=== PATIENT | female | born 1955 | race Caucasian/White ===

== ENCOUNTER 2021-05-02 23:03 | Inpatient (IN) | payer OTHER ==
[2021-05-03] MEDS ORDERED: Morphine 4 MG/ML VIAL ONE ×2 (00:08→02:11)
[2021-05-03] MEDS ORDERED: Ketorolac Tromethamine 30 MG/ML VIAL ONE (00:09)
[2021-05-03] MEDS ORDERED: Ondansetron PF 4 MG/2 ML Vial ONE (00:09)
[2021-05-03 00:19] LABS: #Basophils 0.1 10x3/uL (0.0-0.2); #Neutrophils 15.3 10x3/uL (1.5-8.4); %Basophils 0.3 % (0.0-2.0); %Eosinophils 0.1 % (0.0-6.0); %Lymphocytes 3.7 % (18.0-47.0); %Monocytes 11.2 % (0.0-10.0); Hemoglobin 10.7 g/dL (12.0-15.5); Mean Corpuscular HGB CONC 33.1 g/dL (32.0-36.0); Mean Corpuscular Hemoglobin 28.1 pg (27.0-33.0); Mean Corpuscular Volume 84.8 fl (81.6-98.3); Mean Platelet Volume 10.5 fl (7.4-10.4); Platelet Count 292 10x3/uL (150-450); RBC Distribution Width 12.7 % (11.5-14.5); Red Blood Cell (RBC) Count 3.81 10x6/uL (3.90-5.03); White Blood Cell (WBC) Count 18.2 10x3/uL (3.5-10.5)
[2021-05-03 00:34] LABS: ALT (SGPT) 9 U/L (8-55); AST (SGOT) 15 U/L (5-34); Alkaline Phosphatase 110 U/L (40-110); Anion Gap 16 mmol/L (10-20); BUN (Urea Nitrogen) 9 mg/dL (9.8-20.1); Bilirubin, Total 0.9 mg/dL (0.2-1.2); Calc. Creatinine Clearance 0 mL/min (70-130); Calcium 9.4 mg/dL (7.8-10.44); Carbon Dioxide 20 mmol/L (23-31); Chloride 96 mmol/L (98-107); Glucose 133 mg/dL (80-115); Lipase 35 U/L (8-78); Potassium 3.5 mmol/L (3.5-5.1); Sodium 128 mmol/L (136-145)
[2021-05-03] MEDS ORDERED: cefTRIAXone\\ROCEPHIN 1 GM VIAL ONE (00:37)
[2021-05-03 00:39] LABS: Bilirubin Neg (Negative); Blood, Urine 150 (Negative); Clarity Cloudy (Clear); Glucose, Urine (Dipstick) Normal (Negative); Ketone, Urine 15 mg/dL (Negative); Leukocyte 500 (Negative); Nitrite Negative (Negative); Protein, Urine (Dipstick) 100 mg/dl (Neg-Trace); Urobilinogen Normal mg/dL (Less than 2)
[2021-05-03 00:55] LABS: WBC/HPF Greater than 50 HPF (0-3)
[2021-05-03 00:56] LABS: Bacteria/HPF 2+ HPF (None Seen); Squamous Epithelial 0-3 HPF (0-3)
[2021-05-03] MEDS ORDERED: Calcium Carbonate 500 MG ChewTAB PO PRN (02:36)
[2021-05-03] MEDS ORDERED: Zolpidem Tartrate 5 MG TAB PO PRN (02:36)
[2021-05-03] MEDS ORDERED: Famotidine/PF 20 mg/2ml Vial SLOW IVP SCH (02:45)
[2021-05-03 04:03] VITALS: BMI 23.7
[2021-05-03] MEDS: Sodium Chloride 0.9% 1,000 ML IV SCH ×2 (04:29→15:39)
[2021-05-03] MEDS: Morphine 4 MG/ML VIAL SLOW IVP PRN ×4 (04:30→20:11)
[2021-05-03] MEDS: HYDROcodone/Acetaminophen 5/325 mg Tablet PO PRN ×3 (05:10→21:15)
[2021-05-03] MEDS ORDERED: FLU VACC QS2021-22(6MOS UP)/PF 60 MCG/0.5 ML SYRINGE IM ONE (05:15)
[2021-05-03 06:00] LABS: Anion Gap 12 mmol/L (10-20); BUN (Urea Nitrogen) 7 mg/dL (9.8-20.1); Calc. Creatinine Clearance 74 mL/min (70-130); Calcium 8.5 mg/dL (7.8-10.44); Carbon Dioxide 22 mmol/L (23-31); Chloride 104 mmol/L (98-107); Glucose 122 mg/dL (80-115); Potassium 3.4 mmol/L (3.5-5.1); Sodium 135 mmol/L (136-145)
[2021-05-03] MEDS ORDERED: Ketorolac Tromethamine 30 MG/ML VIAL IVP SCH (06:00)
[2021-05-03 07:12] LABS: #Monocytes 1.6 10x3/uL (0.0-1.1); #Neutrophils 13.9 10x3/uL (1.5-8.4); %Basophils 0.2 % (0.0-2.0); %Eosinophils 0.1 % (0.0-6.0); %Lymphocytes 5.7 % (18.0-47.0); %Monocytes 9.7 % (0.0-10.0); %Neutrophils 83.8 % (40.0-75.0); Hemoglobin 9.4 g/dL (12.0-15.5); Mean Corpuscular HGB CONC 32.8 g/dL (32.0-36.0); Mean Corpuscular Hemoglobin 28.6 pg (27.0-33.0); Mean Corpuscular Volume 87.2 fl (81.6-98.3); Mean Platelet Volume 11.2 fl (7.4-10.4); Platelet Count 265 10x3/uL (150-450); Red Blood Cell (RBC) Count 3.29 10x6/uL (3.90-5.03); White Blood Cell (WBC) Count 16.6 10x3/uL (3.5-10.5)
[2021-05-03] MEDS: cefTRIAXone\\ROCEPHIN 1 GM in Sodium Chloride 0.9% 100 ML IVPB SCH (08:40)
[2021-05-03] MEDS: Enoxaparin Sodium 40 MG/0.4 ML SYRINGE SC SCH (08:40)
[2021-05-03] MEDS: Amlodipine 5 MG TAB PO SCH (08:41)
[2021-05-03] MEDS: Pantoprazole 40 MG GRANULES PACKET PO SCH ×2 (08:41→09:02)
[2021-05-03] MEDS: Ondansetron PF 4 MG/2 ML Vial IVP PRN ×2 (08:49→14:28)
[2021-05-03] MEDS: Acetaminophen 325 MG TAB PO PRN (14:28)
[2021-05-04] MEDS: HYDROcodone/Acetaminophen 5/325 mg Tablet PO PRN ×3 (00:44→21:50)
[2021-05-04] MEDS: Sodium Chloride 0.9% 1,000 ML IV SCH (00:44)
[2021-05-04] MEDS: Acetaminophen 325 MG TAB PO PRN ×3 (04:27→19:32)
[2021-05-04] MEDS: Senokot S 8.6-50 MG TAB PO PRN ×2 (09:06→21:50)
[2021-05-04] MEDS: Amlodipine 5 MG TAB PO SCH (09:07)
[2021-05-04] MEDS: Enoxaparin Sodium 40 MG/0.4 ML SYRINGE SC SCH (09:11)
[2021-05-04] MEDS: cefTRIAXone\\ROCEPHIN 1 GM in Sodium Chloride 0.9% 100 ML IVPB SCH (09:11)
[2021-05-04] MEDS: Morphine 4 MG/ML VIAL SLOW IVP PRN ×2 (09:12→19:31)
[2021-05-04] MEDS ORDERED: Potassium Chloride 20 MEQ TAB PO SCH (13:30)
[2021-05-04] MEDS ORDERED: Electrolyte Replacement Protocol 1 EACH FS SCH (13:30)
[2021-05-04] MEDS: Lactated Ringer's 1,000 ML IV SCH (14:02)
[2021-05-04] MEDS: Ondansetron PF 4 MG/2 ML Vial IVP PRN (19:32)
[2021-05-05] MEDS: Ondansetron PF 4 MG/2 ML Vial IVP PRN ×2 (03:38→13:38)
[2021-05-05] MEDS: Morphine 4 MG/ML VIAL SLOW IVP PRN ×2 (03:40→08:08)
[2021-05-05] MEDS: HYDROcodone/Acetaminophen 5/325 mg Tablet PO PRN ×3 (03:43→12:15)
[2021-05-05 05:44] LABS: Mean Corpuscular Hemoglobin 28.1 pg (27.0-33.0); Mean Corpuscular Volume 85.3 fl (81.6-98.3); Mean Platelet Volume 10.9 fl (7.4-10.4); Platelet Count 264 10x3/uL (150-450)
[2021-05-05 05:59] LABS: Anion Gap 11 mmol/L (10-20); BUN (Urea Nitrogen) 11 mg/dL (9.8-20.1); Calc. Creatinine Clearance 84 mL/min (70-130); Calcium 8.8 mg/dL (7.8-10.44); Carbon Dioxide 23 mmol/L (23-31); Chloride 102 mmol/L (98-107); Glucose 92 mg/dL (80-115); Magnesium 1.7 mg/dL (1.6-2.6); Phosphorus 2.4 mg/dL (2.3-4.7); Potassium 3.9 mmol/L (3.5-5.1); Sodium 132 mmol/L (136-145)
[2021-05-05 07:19] LABS: MDiff Complete? YES
[2021-05-05 07:21] LABS: Band 1 % (5-11); Eosinophils 2 % (0-10); Lymphocytes 18 % (21-51); Monocytes 20 % (0-10); Neutrophil 57 % (42-75); Reactive Lymphocytes 2 % (0-10)
[2021-05-05 07:23] LABS: Platelet Morphology Comment Appears Adequate; RBC Morphology Normal
[2021-05-05] MEDS: Acetaminophen 325 MG TAB PO PRN ×2 (08:10→22:00)
[2021-05-05] MEDS: Enoxaparin Sodium 40 MG/0.4 ML SYRINGE SC SCH (08:17)
[2021-05-05] MEDS: cefTRIAXone\\ROCEPHIN 1 GM in Sodium Chloride 0.9% 100 ML IVPB SCH (08:17)
[2021-05-05] MEDS ORDERED: Magnesium 2 GM/50 ML 2 GM in Premix Bag 1 BAG IVPB SCH (08:30)
[2021-05-05] MEDS: Lactated Ringer's 1,000 ML IV SCH ×2 (08:46→10:35)
[2021-05-05] MEDS: Amlodipine 5 MG TAB PO SCH (10:33)
[2021-05-05] MEDS ORDERED: Ketorolac Tromethamine 15 MG/ML VIAL IVP PRN (12:22)
[2021-05-05] MEDS ORDERED: Morphine 4 MG/ML VIAL SLOW IVP PRN (12:23)
[2021-05-05] MEDS ORDERED: Sulfameth/Trimethoprim DS 800-160mg TAB PO SCH (13:00)
[2021-05-05] MEDS: Ketorolac Tromethamine 30 MG/ML VIAL IVP PRN (13:38)
[2021-05-05] MEDS: Sulfameth/Trimethoprim DS 800-160mg TAB PO SCH (20:35)
[2021-05-06 05:43] LABS: ALT (SGPT) 25 U/L (8-55); AST (SGOT) 19 U/L (5-34); Albumin 3.1 g/dL (3.4-4.8); Alkaline Phosphatase 145 U/L (40-110); Anion Gap 14 mmol/L (10-20); BUN (Urea Nitrogen) 13 mg/dL (9.8-20.1); Bilirubin, Total 0.2 mg/dL (0.2-1.2); Calc. Creatinine Clearance 75 mL/min (70-130); Calcium 8.9 mg/dL (7.8-10.44); Carbon Dioxide 22 mmol/L (23-31); Chloride 103 mmol/L (98-107); Globulin 3.5 g/dL (2.4-3.5); Glucose 96 mg/dL (80-115); Magnesium 2.1 mg/dL (1.6-2.6); Potassium 4.4 mmol/L (3.5-5.1); Protein, Total 6.6 g/dL (5.8-8.1); Sodium 135 mmol/L (136-145)
[2021-05-06] MEDS: Lactated Ringer's 1,000 ML IV SCH (06:51)
[2021-05-06 07:33] LABS: #Eosinphils 0.3 10x3/uL (0.0-0.5); #Monocytes 1.3 10x3/uL (0.0-1.1); #Neutrophils 6.4 10x3/uL (1.5-8.4); %Basophils 0.4 % (0.0-2.0); %Eosinophils 2.5 % (0.0-6.0); %Lymphocytes 18.1 % (18.0-47.0); %Monocytes 12.8 % (0.0-10.0); %Neutrophils 65.3 % (40.0-75.0); Hemoglobin 9.2 g/dL (12.0-15.5); Mean Corpuscular HGB CONC 32.9 g/dL (32.0-36.0); Mean Corpuscular Hemoglobin 27.7 pg (27.0-33.0); Mean Corpuscular Volume 84.3 fl (81.6-98.3); Mean Platelet Volume 10.5 fl (7.4-10.4); Platelet Count 299 10x3/uL (150-450); RBC Distribution Width 13.2 % (11.5-14.5); Red Blood Cell (RBC) Count 3.32 10x6/uL (3.90-5.03); White Blood Cell (WBC) Count 9.9 10x3/uL (3.5-10.5)
[2021-05-06] MEDS: Enoxaparin Sodium 40 MG/0.4 ML SYRINGE SC SCH (07:59)
[2021-05-06] MEDS: Ketorolac Tromethamine 30 MG/ML VIAL IVP PRN (08:13)
[2021-05-06] MEDS: Amlodipine 5 MG TAB PO SCH (08:16)
[2021-05-06] MEDS: Senokot S 8.6-50 MG TAB PO PRN (08:16)
[2021-05-06] MEDS: Sulfameth/Trimethoprim DS 800-160mg TAB PO SCH (09:12)
[2021-05-06 11:48] VITALS: BP 120/69; TEMP 98.3
== END 2021-05-06 16:00 | disposition home or self-care (01) | DRG 872 ==
LOC: CSHERS 23:03 → CSHTELE 05-03 03:06 → CSHPED 05-04 05:37
PROVIDERS: ADMIT Student in an Organized Health Care Education/Training Program; ATTEND Family Medicine
DX: A41.51 Sepsis due to Escherichia coli [E. coli] (principal); N10 Acute pyelonephritis; E87.1 Hypo-osmolality and hyponatremia; Z16.29 Resistance to other single specified antibiotic; E87.2 Acidosis; R55 Syncope and collapse; E87.6 Hypokalemia; E86.0 Dehydration; I10 Essential (primary) hypertension; K21.9 Gastro-esophageal reflux disease without esophagitis; M19.90 Unspecified osteoarthritis, unspecified site; Z96.653 Presence of artificial knee joint, bilateral; D64.9 Anemia, unspecified; R91.1 Solitary pulmonary nodule; Z91.048 Other nonmedicinal substance allergy status; Z87.442 Personal history of urinary calculi; Z90.49 Acquired absence of other specified parts of digestive tract; Z90.710 Acquired absence of both cervix and uterus
CPT/HCPCS: 36415; 71045; 74177; 80048; 80053; 81003; 81015; 83605; 83690; 83735; 83880; 84100; 84443; 84484; 85025; 87040; 87077; 87086; 87186; 93005; 93010; 96365; 96375; 96376; J0696; J1650; J1885; J2270; J2405; J3475; J3490; J7050; J7120; S0028

== ENCOUNTER 2021-05-22 16:35 | Outpatient (CLI) | payer OTHER ==
[2021-05-23 07:59] LABS: SARS-CoV-2 PCR by NAA Not Detected (NotDetected)
== END 2021-05-22 16:36 | disposition home or self-care (01) ==
LOC: CSHLAB 16:35
PROVIDERS: ATTEND Internal Medicine Gastroenterology
DX: Z20.822 Contact with and (suspected) exposure to COVID-19 (principal)
CPT/HCPCS: U0003; U0005

== ENCOUNTER 2021-05-26 06:00 | Day surgery (SDC) | payer OTHER ==
[2021-05-23 09:34] VITALS: BMI 23.5
[2021-05-26] MEDS ORDERED: Lidocaine 1% MPF 2 ML VIAL ONE (06:53)
[2021-05-26] MEDS ORDERED: PROPOFOL 20 ML ONE (07:02)
[2021-05-26] MEDS ORDERED: Lidocaine 1% PF 5 ML VIAL ONE (07:02)
[2021-05-26] MEDS ORDERED: Phenylephrine 10 MG/ML VIAL ONE (07:33)
== END 2021-05-26 08:23 | disposition home or self-care (01) ==
LOC: CSHSDC 06:00
PROVIDERS: ATTEND Internal Medicine Gastroenterology
PROC: 0DB68ZZ Excision of Stomach, Via Natural or Artificial Opening Endoscopic (ICD-10-PCS; principal; 2021-05-26)
DX: R11.2 Nausea with vomiting, unspecified (principal); R10.9 Unspecified abdominal pain; K31.7 Polyp of stomach and duodenum; K44.9 Diaphragmatic hernia without obstruction or gangrene; Z79.899 Other long term (current) drug therapy; I10 Essential (primary) hypertension; M81.0 Age-related osteoporosis without current pathological fracture; Z90.49 Acquired absence of other specified parts of digestive tract; Z90.710 Acquired absence of both cervix and uterus
CPT/HCPCS: 88305; J2370; J2704